=== PATIENT | female | born 1960 | race Caucasian/White ===

== ENCOUNTER 2020-07-26 23:46 | Inpatient (IN) | payer MEDICAID ==
[~2020-07-26] VITALS: Ht 161.3 cm; Wt 87.9 kg
[~2020-07-26 23:46] MED LIST: VANCOMYCIN 1,600 MG in SODIUM CHLORIDE 0.9% 250 ML IV ONE
[2020-07-27] MEDS ORDERED: VANCOMYCIN PER PHARMACY MC ONE
[2020-07-27] MEDS ORDERED: PIPERACILLIN/TAZO/PMX 3.375GM 50 ML IVPB ONE
[2020-07-27] MEDS ORDERED: SODIUM CHLORIDE 0.9% 1,000ML IVBOLUS ONE
--- NOTE | 2020-07-27 | NUR ---
BROUGHT IN BY ELIAS FROM [place], PER PATIENT WAS BIT BY SOMETHING LAST WEEK. PATIENT FELL DUE TO WEAKNESS BUT WAS LAYED DOWN BY . DIDNT HIT HEAD. RIGHT HAND SWELLING AND RIGHT AND LEFT MIDDLE FINGER NECROSIS NOTED. HYPOTENSIVE UPON ARRIVAL TO ED.
--- NOTE | 2020-07-27 00:15 | NUR ---
BLOOD CULTURE DRAWN.
--- NOTE | 2020-07-27 00:15 | NUR ---
PATIENT ALERT AND ORIENTED, LETHARGIC. AFEBRILE.
[2020-07-27] MEDS ORDERED: PIPERACILLIN/TAZO/PMX 3.375GM 50 ML ONE (00:16)
[2020-07-27 00:25] LABS: PH, VENOUS 7.311 pH (7.320-7.420)
[2020-07-27 00:29] LABS: MEAN CORPUSCULAR HEMOGLOBIN 29.7 pg (27.0-34.8); MEAN CORPUSCULAR HGB CONC 33.2 g/dL (32.4-35.8); MEAN CORPUSCULAR VOLUME 89.4 fL (80-100); MEAN PLATELET VOLUME 9.2 fL (7.4-10.4); PLATELET COUNT 189 x10^3/uL (130-400); RED BLOOD COUNT 3.33 x10^6/uL (3.82-5.3); RED CELL DISTRIBUTION WIDTH 15.7 % (9.6-15.2)
[2020-07-27] MEDS ORDERED: NOREPINEPHRINE 8 MG in SODIUM CHLORIDE 0.9% 242 ML IV PRN ×2 (00:30→02:30)
--- NOTE | 2020-07-27 00:36 | NUR ---
ANTIBIOTIC STARTED. VITAL SIGNS IMPROVING
[2020-07-27 00:39] LABS: ALANINE AMINOTRANSFERASE 24 U/L (12-78); ALBUMIN 1.7 g/dL (3.4-5.0); ANION GAP 11 mmol/L (5-15); CALCIUM 7.6 mg/dL (8.5-10.1); CHLORIDE 105 mmol/L (98-107); CREATININE 4.73 mg/dL (0.55-1.02); INTERNATIONAL NORMALIZED RATIO 1.23 (0.93-1.1); PROTHROMBIN TIME 12.7 Seconds (9.6-11.5)
[2020-07-27 00:45] LABS: MD YES
[2020-07-27 00:46] LABS: ALKALINE PHOSPHATASE 91 U/L (45-117); BILIRUBIN,TOTAL 1.1 mg/dL (0.2-1.0); TOTAL PROTEIN 5.1 g/dL (6.4-8.2)
[2020-07-27 00:47] LABS: BAND#(MANUAL) 3.27 x10^3/uL; BANDS%(MANUAL) 11 % (0-7); LYMPH#(MANUAL) 0.59 x10^3/uL (1-3.4); LYMPHS% (MANUAL) 2 % (22-44); MONOS#(MANUAL) 0.59 x10^3/uL (0.3-2.7); MONOS% (MANUAL) 2 % (2-9); SEG#(MANUAL) 25.25 x10^3/uL (1.8-6.8); SEGS% (MANUAL) 85 % (42-75)
[2020-07-27 00:48] LABS: <RBC MORPHOLOGY> NORMAL; PMNS WITH VACUOLES 1+
[2020-07-27 00:51] LABS: <PLATELET ESTIMATE> ADEQUATE; <PLT MORPHOLOGY> NORMAL PLT MORPH; C-REACTIVE PROTEIN, QUANT > 19.00 mg/dL (0.02-0.49); TOXIC GRAN 1+
[2020-07-27] MEDS ORDERED: FENTANYL PF 100 MCG/2ML ONE ×2 (01:28→10:28)
--- NOTE | 2020-07-27 01:34 | NUR ---
GENEVA RN: MD TO BS FOR CL PLACEMENT AND MEDICATED FOR PAIN PER FLACC, TITRATING LEVO
--- NOTE | 2020-07-27 01:53 | NUR ---
LINE PLACEMENT DONE. PT TOLERATED WELL.
[2020-07-27] MEDS ORDERED: FENTANYL PF 100 MCG/2ML IVPush ONE (02:00)
--- NOTE | 2020-07-27 02:01 | NUR ---
VERBAL ORDER TO GIVE 500NS BOLUS.
--- NOTE | 2020-07-27 02:08 | NUR ---
CXR DONE, DR CIFUENTES SAID OK TO USE THE CL FOR IVF. REPORT BS TO E[facility], PRIMARY RN
--- NOTE | 2020-07-27 02:15 | NUR ---
DR. MAHAJAN AT BEDSIDE. PATIENT GOING TO OR.
[2020-07-27] MEDS ORDERED: FENTANYL PF 250 MCG/5ML ONE (02:26)
[2020-07-27] MEDS ORDERED: VANCOMYCIN PER PHARMACY MC PRN (02:30)
[2020-07-27] MEDS ORDERED: morphine SULFATE 10 MG/ML, 1ML IVPush PRN (02:30)
[2020-07-27] MEDS ORDERED: PHARMACY MAY ADJ FOR RENAL FX MC PRN (02:30)
[2020-07-27] MEDS ORDERED: SODIUM CHLORIDE 0.9% 500 ML IV SCH (02:30)
[2020-07-27] MEDS ORDERED: PIPERACILLIN/TAZO/PMX 3.375GM 50 ML IV SCH (02:30)
[2020-07-27] MEDS ORDERED: ONDANSETRON 2MG/ML, 2ML IVPush PRN (02:30)
--- NOTE | 2020-07-27 02:30 | NUR ---
REPORT GIVEN TO KAREN TALLEY.
--- NOTE | 2020-07-27 02:35 | NUR ---
PATIENT TO SURGERY.
[2020-07-27] MEDS ORDERED: ROCURONIUM 10 MG/ML,10ML ONE (02:37)
[2020-07-27] MEDS ORDERED: NOREPINEPHRINE 1 MG/ML, 4ML ONE (02:57)
[2020-07-27] MEDS ORDERED: SUCCINYLCHOLINE 20 MG/ML, 10ML ONE (03:10)
[2020-07-27] MEDS ORDERED: PROPOFOL 10 MG/ML, 20ML ONE (03:10)
[2020-07-27] MEDS ORDERED: SODIUM BICARBONATE 1 MEQ/ML, 50ML VIAL ONE ×2 (03:26→03:41)
[2020-07-27 03:55] LABS: D-DIMER 4.27 ug/mlFEU (0.00-0.52)
[2020-07-27] MEDS ORDERED: PIPERACILLIN/TAZO/PMX 2.25GM 50 ML IV SCH (04:09)
[2020-07-27] MEDS ORDERED: PHARMACOKINETIC MONITORING MC PRN (04:30)
[2020-07-27] MEDS ORDERED: PHARMACOKINETIC CONSULTATION MC ONE (04:30)
[2020-07-27] MEDS: CLINDAMYCIN PMX 900MG/50ML 50 ML IV SCH ×3 (05:04→21:33)
[2020-07-27] MEDS: LACTATED RINGERS 1,000 ML IV SCH ×2 (05:08→15:57)
[2020-07-27 05:54] LABS: MICROSCOPIC INDICATED
[2020-07-27 05:58] LABS: MEAN CORPUSCULAR HEMOGLOBIN 29.4 pg (27.0-34.8); MEAN CORPUSCULAR HGB CONC 32.8 g/dL (32.4-35.8); MEAN CORPUSCULAR VOLUME 89.8 fL (80-100); PLATELET COUNT 196 x10^3/uL (130-400); RED BLOOD COUNT 3.77 x10^6/uL (3.82-5.3); RED CELL DISTRIBUTION WIDTH 15.9 % (9.6-15.2)
[2020-07-27 05:59] LABS: ANION GAP 10 mmol/L (5-15); CALCIUM 7.4 mg/dL (8.5-10.1); CHLORIDE 108 mmol/L (98-107); CREATININE 4.08 mg/dL (0.55-1.02)
[2020-07-27 06:06] LABS: AMPHETAMINE SCREEN, URINE Positive (Negative); BARBITURATE SCREEN, URINE Negative (Negative); BENZODIAZEPINE SCREEN, URINE Negative (Negative); CANNABINOID SCREEN, URINE Negative (Negative); COCAINE SCREEN, URINE Negative (Negative); METHADONE SCREEN, URINE Negative (Negative); OPIATE SCREEN, URINE Negative (Negative)
[2020-07-27 06:25] LABS: MD YES
[2020-07-27 06:29] LABS: BAND#(MANUAL) 9.69 x10^3/uL; BANDS%(MANUAL) 28 % (0-7); METAMYELOCYTES# (MANUAL) 3.11 x10^3/uL (0-0); METAMYELOCYTES% (MANUAL) 9 % (0-1); MONOS#(MANUAL) 0.69 x10^3/uL (0.3-2.7); MONOS% (MANUAL) 2 % (2-9); MYELOCYTES# (MANUAL) 0.35 x10^3/uL (0-0); MYELOCYTES% (MANUAL) 1 % (0-0); SEG#(MANUAL) 20.76 x10^3/uL (1.8-6.8); SEGS% (MANUAL) 60 % (42-75)
[2020-07-27 06:31] LABS: <PLATELET ESTIMATE> ADEQUATE; <PLT MORPHOLOGY> NORMAL PLT MORPH; PMNS WITH VACUOLES 1+
[2020-07-27 06:32] LABS: TOXIC GRAN 1+
[2020-07-27 06:34] LABS: ANISOCYTOSIS 1+
[2020-07-27] MEDS ORDERED: VASOPRESSIN 20 UNIT in SODIUM CHLORIDE 0.9% 99 ML IV PRN (07:00)
[2020-07-27] MEDS ORDERED: CEFTAROLINE 300 MG in SODIUM CHLORIDE 0.9% 100 ML IV SCH (07:00)
[2020-07-27] MEDS: NOREPINEPHRINE 32 MG in SODIUM CHLORIDE 0.9% 218 ML IV PRN ×2 (08:51→15:57)
[2020-07-27] MEDS: MEROPENEM 500 MG in SODIUM CHLORIDE 0.9% 100 ML IV SCH ×2 (08:51→21:33)
[2020-07-27] MEDS ORDERED: LIDOCAINE-MPF 1%, 2ML ENDO PRN (09:30)
[2020-07-27] MEDS: FAMOTIDINE 20 MG/2 ML IVPush SCH ×2 (09:42→21:33)
[2020-07-27] MEDS: HEPARIN 5,000 UNITS/ML, 1ML SQ SCH ×2 (09:47→18:59)
[2020-07-27] MEDS: MIDAZOLAM HCL 50 MG in SODIUM CHLORIDE 0.9% 40 ML IV PRN ×2 (10:23→23:22)
[2020-07-27] MEDS: FENTANYL PF 100 MCG/2ML IVPush PRN (10:33)
[2020-07-27] MEDS: AMIODARONE 450 MG in DEXTROSE 5% 241 ML IV PRN ×2 (12:56→21:12)
[2020-07-27] MEDS: FILTER 0.22 MICRON FOR AMIODARONE IV PRN ×2 (12:59→21:13)
[2020-07-27] MEDS ORDERED: DAPTOMYCIN 520 MG in SODIUM CHLORIDE 0.9% 100 ML IVPB SCH (13:00)
[2020-07-27] MEDS ORDERED: AMIODARONE 150 MG in DEXTROSE 5% 100 ML IV ONE (13:00)
[2020-07-27] MEDS: ACETAMINOPHEN 650 MG/20.3 ML UDC PO PRN ×2 (13:09→18:59)
[2020-07-27 13:50] LABS: CHLORIDE,URINE RANDOM 21 mmol/L; POTASSIUM,URINE RANDOM 54 mmol/L; SODIUM,URINE RANDOM 43 mmol/L
[2020-07-27] MEDS ORDERED: MAGNESIUM SULFATE PMX 4GM/100M 100 ML IV ONE (15:00)
[2020-07-27] MEDS ORDERED: PHENYLEPHRINE 50 MG in SODIUM CHLORIDE 0.9% 245 ML IV PRN (20:00)
[2020-07-28] MEDS: NOREPINEPHRINE 32 MG in SODIUM CHLORIDE 0.9% 218 ML IV PRN ×2 (00:56→11:49)
[2020-07-28] MEDS: HEPARIN 5,000 UNITS/ML, 1ML SQ SCH ×3 (02:22→17:37)
[2020-07-28] MEDS: LACTATED RINGERS 1,000 ML IV SCH ×2 (02:22→11:55)
[2020-07-28 04:00] VITALS: BP 107/54
[2020-07-28] MEDS: CLINDAMYCIN PMX 900MG/50ML 50 ML IV SCH ×3 (04:54→23:28)
[2020-07-28 05:16] LABS: MEAN CORPUSCULAR HEMOGLOBIN 29.5 pg (27.0-34.8); MEAN CORPUSCULAR HGB CONC 33.9 g/dL (32.4-35.8); MEAN CORPUSCULAR VOLUME 87.2 fL (80-100); PLATELET COUNT 142 x10^3/uL (130-400); RED BLOOD COUNT 3.76 x10^6/uL (3.82-5.3); RED CELL DISTRIBUTION WIDTH 15.4 % (9.6-15.2)
[2020-07-28 05:23] LABS: ALBUMIN 1.3 g/dL (3.4-5.0); ANION GAP 10 mmol/L (5-15); CHLORIDE 107 mmol/L (98-107)
[2020-07-28 05:25] LABS: ALKALINE PHOSPHATASE 112 U/L (45-117); BILIRUBIN,TOTAL 1.4 mg/dL (0.2-1.0); TOTAL PROTEIN 4.6 g/dL (6.4-8.2)
[2020-07-28 05:27] LABS: ALANINE AMINOTRANSFERASE 42 U/L (12-78); CALCIUM 7.8 mg/dL (8.5-10.1); CREATININE 2.94 mg/dL (0.55-1.02)
[2020-07-28 06:03] LABS: MD YES
[2020-07-28 06:06] LABS: BAND#(MANUAL) 9.76 x10^3/uL; BANDS%(MANUAL) 36 % (0-7); LYMPH#(MANUAL) 0.81 x10^3/uL (1-3.4); LYMPHS% (MANUAL) 3 % (22-44); METAMYELOCYTES# (MANUAL) 1.36 x10^3/uL (0-0); METAMYELOCYTES% (MANUAL) 5 % (0-1); MONOS#(MANUAL) 1.63 x10^3/uL (0.3-2.7); MONOS% (MANUAL) 6 % (2-9); MYELOCYTES# (MANUAL) 0.27 x10^3/uL (0-0); MYELOCYTES% (MANUAL) 1 % (0-0); SEG#(MANUAL) 13.28 x10^3/uL (1.8-6.8); SEGS% (MANUAL) 49 % (42-75)
[2020-07-28 06:07] LABS: <PLATELET ESTIMATE> ADEQUATE; <PLT MORPHOLOGY> NORMAL PLT MORPH; ANISOCYTOSIS 1+; TOXIC GRAN 1+
[2020-07-28 06:08] LABS: PMNS WITH VACUOLES 1+
[2020-07-28] MEDS: MEROPENEM 500 MG in SODIUM CHLORIDE 0.9% 100 ML IV SCH ×2 (08:32→23:28)
[2020-07-28] MEDS: AMIODARONE 450 MG in DEXTROSE 5% 241 ML IV PRN (12:00)
[2020-07-28] MEDS: ACETAMINOPHEN 650 MG/20.3 ML UDC PO PRN (16:22)
[2020-07-28] MEDS: MIDAZOLAM HCL 50 MG in SODIUM CHLORIDE 0.9% 40 ML IV PRN (21:13)
[2020-07-28] MEDS: FAMOTIDINE 20 MG/2 ML IVPush SCH (23:27)
[2020-07-28] MEDS: FENTANYL PF 100 MCG/2ML IVPush PRN (23:28)
[2020-07-29] MEDS: NOREPINEPHRINE 32 MG in SODIUM CHLORIDE 0.9% 218 ML IV PRN (01:31)
[2020-07-29] MEDS: FENTANYL PF 100 MCG/2ML IVPush PRN ×8 (01:32→23:02)
[2020-07-29] MEDS: HEPARIN 5,000 UNITS/ML, 1ML SQ SCH ×3 (01:36→18:13)
[2020-07-29] MEDS: AMIODARONE 450 MG in DEXTROSE 5% 241 ML IV PRN ×2 (01:51→19:49)
[2020-07-29] MEDS: LACTATED RINGERS 1,000 ML IV SCH (02:21)
[2020-07-29 04:00] VITALS: BP 118/70
[2020-07-29] MEDS: CLINDAMYCIN PMX 900MG/50ML 50 ML IV SCH ×3 (05:00→21:15)
[2020-07-29 05:07] LABS: ALANINE AMINOTRANSFERASE 36 U/L (12-78); ALBUMIN 1.2 g/dL (3.4-5.0); ANION GAP 6 mmol/L (5-15); CALCIUM 7.6 mg/dL (8.5-10.1); CHLORIDE 107 mmol/L (98-107); CREATININE 1.99 mg/dL (0.55-1.02)
[2020-07-29 05:09] LABS: ALKALINE PHOSPHATASE 119 U/L (45-117); BILIRUBIN,TOTAL 1.3 mg/dL (0.2-1.0); TOTAL PROTEIN 4.6 g/dL (6.4-8.2)
[2020-07-29 06:01] LABS: MD YES; MEAN CORPUSCULAR HEMOGLOBIN 29.3 pg (27.0-34.8); MEAN CORPUSCULAR HGB CONC 33.6 g/dL (32.4-35.8); MEAN PLATELET VOLUME 9.1 fL (7.4-10.4); PLATELET COUNT 79 x10^3/uL (130-400); RED BLOOD COUNT 3.63 x10^6/uL (3.82-5.3); RED CELL DISTRIBUTION WIDTH 15.3 % (9.6-15.2)
[2020-07-29 06:03] LABS: BAND#(MANUAL) 5.08 x10^3/uL; BANDS%(MANUAL) 20 % (0-7); EOS#(MANUAL) 0.25 x10^3/uL (0.0-0.4); EOS% (MANUAL) 1 % (1-7); MONOS#(MANUAL) 0.51 x10^3/uL (0.3-2.7); MONOS% (MANUAL) 2 % (2-9); SEG#(MANUAL) 17.78 x10^3/uL (1.8-6.8); SEGS% (MANUAL) 70 % (42-75)
[2020-07-29 06:04] LABS: ANISOCYTOSIS 1+; LYMPH#(MANUAL) 1.52 x10^3/uL (1-3.4); LYMPHS% (MANUAL) 6 % (22-44); METAMYELOCYTES# (MANUAL) 0.25 x10^3/uL (0-0); METAMYELOCYTES% (MANUAL) 1 % (0-1); PMNS WITH VACUOLES 1+; TOXIC GRAN 1+
[2020-07-29 06:06] LABS: <PLATELET ESTIMATE> DECREASED; <PLT MORPHOLOGY> NORMAL PLT MORPH
[2020-07-29] MEDS: MEROPENEM 500 MG in SODIUM CHLORIDE 0.9% 100 ML IV SCH (09:57)
[2020-07-29] MEDS ORDERED: VANCOMYCIN PMX 1GM/200ML 200 ML IV ONE (17:30)
[2020-07-29] MEDS ORDERED: PHARMACOKINETIC MONITORING MC PRN (17:30)
[2020-07-29] MEDS ORDERED: VANCOMYCIN PER PHARMACY MC PRN (17:30)
[2020-07-29] MEDS ORDERED: PHARMACOKINETIC CONSULTATION MC ONE (17:30)
[2020-07-29] MEDS: FAMOTIDINE 20 MG/2 ML IVPush SCH (21:15)
[2020-07-29] MEDS ORDERED: MEROPENEM 1 GM in SODIUM CHLORIDE 0.9% 100 ML IV SCH (22:00)
[2020-07-30] MEDS: HEPARIN 5,000 UNITS/ML, 1ML SQ SCH ×3 (02:16→20:42)
[2020-07-30] MEDS: FENTANYL PF 100 MCG/2ML IVPush PRN ×6 (02:17→23:30)
[2020-07-30] MEDS: MIDAZOLAM HCL 50 MG in SODIUM CHLORIDE 0.9% 40 ML IV PRN ×2 (02:19→16:23)
[2020-07-30 04:00] VITALS: BP 99/53
[2020-07-30 05:27] LABS: MEAN CORPUSCULAR HEMOGLOBIN 28.7 pg (27.0-34.8); MEAN CORPUSCULAR HGB CONC 32.6 g/dL (32.4-35.8); PLATELET COUNT 62 x10^3/uL (130-400); RED BLOOD COUNT 3.33 x10^6/uL (3.82-5.3); RED CELL DISTRIBUTION WIDTH 16.2 % (9.6-15.2)
[2020-07-30] MEDS: CLINDAMYCIN PMX 900MG/50ML 50 ML IV SCH ×3 (05:29→20:43)
[2020-07-30 05:48] LABS: MD YES
[2020-07-30 05:49] LABS: ANISOCYTOSIS 1+; BAND#(MANUAL) 1.05 x10^3/uL; BANDS%(MANUAL) 6 % (0-7); LYMPH#(MANUAL) 0.88 x10^3/uL (1-3.4); LYMPHS% (MANUAL) 5 % (22-44); METAMYELOCYTES# (MANUAL) 0.18 x10^3/uL (0-0); METAMYELOCYTES% (MANUAL) 1 % (0-1); MONOS% (MANUAL) 4 % (2-9); SEGS% (MANUAL) 84 % (42-75)
[2020-07-30 05:50] LABS: TOXIC GRAN 1+
[2020-07-30 05:51] LABS: <PLATELET ESTIMATE> DECREASED; <PLT MORPHOLOGY> NORMAL PLT MORPH
[2020-07-30] MEDS: NOREPINEPHRINE 32 MG in SODIUM CHLORIDE 0.9% 218 ML IV PRN (08:41)
[2020-07-30] MEDS: AMIODARONE 450 MG in DEXTROSE 5% 241 ML IV PRN ×2 (08:42→23:32)
[2020-07-30 09:25] LABS: ALBUMIN 1.1 g/dL (3.4-5.0); ANION GAP 7 mmol/L (5-15); CALCIUM 7.7 mg/dL (8.5-10.1); CHLORIDE 107 mmol/L (98-107); CREATININE 1.59 mg/dL (0.55-1.02)
[2020-07-30] MEDS ORDERED: VANCOMYCIN 1,700 MG in SODIUM CHLORIDE 0.9% 250 ML IV SCH (10:00)
[2020-07-30] MEDS: ALBUMIN HUMAN 25% 100 ML IV PRN ×3 (10:13→12:10)
[2020-07-30] MEDS ORDERED: ALBUMIN HUMAN 25% 100 ML IV PRN (10:30)
[2020-07-30] MEDS: IRON SUCROSE COMPLEX 100MG/5ML IV ONE ×2 (12:00→12:54)
[2020-07-30] MEDS: MEROPENEM 1 GM in SODIUM CHLORIDE 0.9% 100 ML IV SCH (16:00)
[2020-07-30] MEDS: ACETAMINOPHEN 650 MG/20.3 ML UDC PO PRN (16:02)
[2020-07-30] MEDS: FAMOTIDINE 20 MG/2 ML IVPush SCH (20:42)
[2020-07-31] MEDS: MIDAZOLAM HCL 50 MG in SODIUM CHLORIDE 0.9% 40 ML IV PRN ×2 (02:58→20:49)
[2020-07-31] MEDS: FENTANYL PF 1,000 MCG in SODIUM CHLORIDE 0.9% 80 ML IV PRN ×2 (02:58→12:21)
[2020-07-31 04:00] VITALS: BP 91/51
[2020-07-31] MEDS: HEPARIN 5,000 UNITS/ML, 1ML SQ SCH ×3 (04:49→20:39)
[2020-07-31] MEDS: CLINDAMYCIN PMX 900MG/50ML 50 ML IV SCH ×3 (04:49→22:06)
[2020-07-31 06:01] LABS: MEAN CORPUSCULAR HEMOGLOBIN 28.8 pg (27.0-34.8); MEAN CORPUSCULAR HGB CONC 33.1 g/dL (32.4-35.8); MEAN CORPUSCULAR VOLUME 87.1 fL (80-100); RED CELL DISTRIBUTION WIDTH 15.7 % (9.6-15.2)
[2020-07-31 06:17] LABS: ANION GAP 6 mmol/L (5-15); CALCIUM 7.5 mg/dL (8.5-10.1); CHLORIDE 105 mmol/L (98-107)
[2020-07-31 06:29] LABS: MEAN PLATELET VOLUME 9.1 fL (7.4-10.4); PLATELET COUNT 66 x10^3/uL (130-400)
[2020-07-31 06:30] LABS: MD YES
[2020-07-31 06:32] LABS: BAND#(MANUAL) 0.94 x10^3/uL; BANDS%(MANUAL) 8 % (0-7); LYMPH#(MANUAL) 0.59 x10^3/uL (1-3.4); LYMPHS% (MANUAL) 5 % (22-44); MONOS#(MANUAL) 0.35 x10^3/uL (0.3-2.7); MONOS% (MANUAL) 3 % (2-9)
[2020-07-31 06:33] LABS: SEG#(MANUAL) 9.91 x10^3/uL (1.8-6.8); SEGS% (MANUAL) 84 % (42-75)
[2020-07-31 06:34] LABS: <PLATELET ESTIMATE> DECREASED; <PLT MORPHOLOGY> NORMAL PLT MORPH; ANISOCYTOSIS 1+
[2020-07-31 06:35] LABS: PMNS WITH VACUOLES 1+; TOXIC GRAN 2+
[2020-07-31] MEDS ORDERED: MAGNESIUM SULFATE PMX 2GM/50ML 50 ML IV ONE (10:30)
[2020-07-31] MEDS: AMIODARONE 450 MG in DEXTROSE 5% 241 ML IV PRN (12:25)
[2020-07-31] MEDS: NOREPINEPHRINE 32 MG in SODIUM CHLORIDE 0.9% 218 ML IV PRN (12:26)
[2020-07-31] MEDS: POTASSIUM CHLORIDE 10% 40 MEQ/30 ML UDC NG SCH ×2 (14:32→20:39)
[2020-07-31] MEDS: MEROPENEM 1 GM in SODIUM CHLORIDE 0.9% 100 ML IV SCH (20:39)
[2020-07-31] MEDS: FAMOTIDINE 20 MG/2 ML IVPush SCH (20:40)
[2020-08-01] MEDS: FENTANYL PF 1,000 MCG in SODIUM CHLORIDE 0.9% 80 ML IV PRN ×3 (01:24→17:55)
[2020-08-01 04:00] VITALS: BP 97/55
[2020-08-01] MEDS: HEPARIN 5,000 UNITS/ML, 1ML SQ SCH ×3 (04:34→19:59)
[2020-08-01 05:05] LABS: ALANINE AMINOTRANSFERASE 94 U/L (12-78); ALBUMIN 1.5 g/dL (3.4-5.0); ANION GAP 6 mmol/L (5-15); CALCIUM 8.1 mg/dL (8.5-10.1); CHLORIDE 102 mmol/L (98-107); CREATININE 1.85 mg/dL (0.55-1.02)
[2020-08-01 05:08] LABS: ALKALINE PHOSPHATASE 302 U/L (45-117); TOTAL PROTEIN 5.2 g/dL (6.4-8.2)
[2020-08-01 05:26] LABS: MEAN CORPUSCULAR HEMOGLOBIN 28.9 pg (27.0-34.8); MEAN CORPUSCULAR HGB CONC 33.1 g/dL (32.4-35.8); MEAN CORPUSCULAR VOLUME 87.4 fL (80-100); PLATELET COUNT 108 x10^3/uL (130-400); RED BLOOD COUNT 3.19 x10^6/uL (3.82-5.3); RED CELL DISTRIBUTION WIDTH 15.9 % (9.6-15.2)
[2020-08-01] MEDS: CLINDAMYCIN PMX 900MG/50ML 50 ML IV SCH (05:47)
[2020-08-01 06:10] LABS: MD YES
[2020-08-01 06:12] LABS: ANISOCYTOSIS 1+; BAND#(MANUAL) 0.15 x10^3/uL; BANDS%(MANUAL) 1 % (0-7); EOS% (MANUAL) 2 % (1-7); LYMPH#(MANUAL) 0.59 x10^3/uL (1-3.4); LYMPHS% (MANUAL) 4 % (22-44); METAMYELOCYTES# (MANUAL) 0.15 x10^3/uL (0-0); METAMYELOCYTES% (MANUAL) 1 % (0-1); MONOS#(MANUAL) 0.59 x10^3/uL (0.3-2.7); MONOS% (MANUAL) 4 % (2-9); SEG#(MANUAL) 13.02 x10^3/uL (1.8-6.8); SEGS% (MANUAL) 88 % (42-75)
[2020-08-01 06:14] LABS: <PLATELET ESTIMATE> DECREASED; <PLT MORPHOLOGY> NORMAL PLT MORPH; TOXIC GRAN 1+
[2020-08-01] MEDS: AMIODARONE 450 MG in DEXTROSE 5% 241 ML IV PRN (09:51)
[2020-08-01] MEDS: FILTER 0.22 MICRON FOR AMIODARONE IV PRN (09:51)
[2020-08-01] MEDS: MIDAZOLAM HCL 50 MG in SODIUM CHLORIDE 0.9% 40 ML IV PRN (10:21)
[2020-08-01] MEDS: CEFTAROLINE 600 MG in SODIUM CHLORIDE 0.9% 100 ML IV SCH (11:17)
[2020-08-01] MEDS: ALBUMIN HUMAN 25% 100 ML IV PRN ×3 (19:42→22:47)
[2020-08-01] MEDS: FAMOTIDINE 20 MG/2 ML IVPush SCH (19:59)
[2020-08-02] MEDS: CEFTAROLINE 600 MG in SODIUM CHLORIDE 0.9% 100 ML IV SCH ×3 (00:09→16:55)
[2020-08-02] MEDS: AMIODARONE 450 MG in DEXTROSE 5% 241 ML IV PRN ×2 (00:10→02:45)
[2020-08-02] MEDS: FILTER 0.22 MICRON FOR AMIODARONE IV PRN (02:44)
[2020-08-02 04:00] VITALS: BP 152/65
[2020-08-02] MEDS: HEPARIN 5,000 UNITS/ML, 1ML SQ SCH ×3 (04:40→20:02)
[2020-08-02] MEDS: FENTANYL PF 1,000 MCG in SODIUM CHLORIDE 0.9% 80 ML IV PRN ×3 (04:47→17:50)
[2020-08-02] MEDS: MIDAZOLAM HCL 50 MG in SODIUM CHLORIDE 0.9% 40 ML IV PRN ×2 (04:59→10:49)
[2020-08-02 05:22] LABS: MEAN CORPUSCULAR HGB CONC 33.4 g/dL (32.4-35.8); MEAN CORPUSCULAR VOLUME 86.8 fL (80-100); MEAN PLATELET VOLUME 8.6 fL (7.4-10.4); PLATELET COUNT 138 x10^3/uL (130-400); RED BLOOD COUNT 3.02 x10^6/uL (3.82-5.3); RED CELL DISTRIBUTION WIDTH 15.8 % (9.6-15.2)
[2020-08-02 05:23] LABS: ALANINE AMINOTRANSFERASE 96 U/L (12-78); ALBUMIN 2.6 g/dL (3.4-5.0); ANION GAP 4 mmol/L (5-15); CALCIUM 8.3 mg/dL (8.5-10.1); CHLORIDE 106 mmol/L (98-107); CREATININE 1.05 mg/dL (0.55-1.02)
[2020-08-02 05:25] LABS: ALKALINE PHOSPHATASE 277 U/L (45-117); BILIRUBIN,TOTAL 2.3 mg/dL (0.2-1.0); TOTAL PROTEIN 5.8 g/dL (6.4-8.2)
[2020-08-02 06:02] LABS: BASOPHILS # (AUTO) 0.01 x10^3/uL (0-0.1); BASOPHILS % (AUTO) 0 % (0-1); EOSINOPHILS # (AUTO) 0.12 x10^3/uL (0-0.4); EOSINOPHILS % (AUTO) 1 % (1-7); LYMPHOCYTES # (AUTO) 1.02 x10^3/uL (1-3.4); LYMPHOCYTES % (AUTO) 8 % (22-44); MD SCAN; MONOCYTES # (AUTO) 0.94 x10^3/uL (0.2-0.8); MONOCYTES % (AUTO) 7 % (2-9); NEUTROPHILS # (AUTO) 10.67 x10^3/uL (1.8-6.8); NEUTROPHILS % (AUTO) 84 % (42-75)
[2020-08-02] MEDS ORDERED: DOCUSATE 100 MG CAPSULE PO PRN (15:00)
[2020-08-02] MEDS ORDERED: BISACODYL 10 MG SUPP PR PRN (15:00)
[2020-08-02] MEDS ORDERED: LACTULOSE 10 GM/15 ML UDC PO PRN (15:00)
[2020-08-02] MEDS ORDERED: CEFTAROLINE 600 MG in SODIUM CHLORIDE 0.9% 100 ML IV SCH (15:30)
[2020-08-02] MEDS: ACETAMINOPHEN 650 MG/20.3 ML UDC PO PRN (16:30)
[2020-08-02] MEDS: FAMOTIDINE 20 MG/2 ML IVPush SCH (20:02)
[2020-08-02] MEDS: AMIODARONE 200 MG TABLET PO SCH (20:02)
[2020-08-03] MEDS: CEFTAROLINE 600 MG in SODIUM CHLORIDE 0.9% 100 ML IV SCH ×3 (01:41→17:42)
[2020-08-03] MEDS: MIDAZOLAM HCL 50 MG in SODIUM CHLORIDE 0.9% 40 ML IV PRN ×2 (03:18→14:20)
[2020-08-03] MEDS: HEPARIN 5,000 UNITS/ML, 1ML SQ SCH ×3 (03:19→20:07)
[2020-08-03] MEDS: FENTANYL PF 1,000 MCG in SODIUM CHLORIDE 0.9% 80 ML IV PRN ×3 (03:19→20:06)
[2020-08-03 04:00] VITALS: BP 79/49
[2020-08-03 04:24] LABS: MEAN CORPUSCULAR HEMOGLOBIN 28.2 pg (27.0-34.8); MEAN CORPUSCULAR HGB CONC 32.1 g/dL (32.4-35.8); MEAN PLATELET VOLUME 8.5 fL (7.4-10.4); PLATELET COUNT 199 x10^3/uL (130-400); RED BLOOD COUNT 2.84 x10^6/uL (3.82-5.3); RED CELL DISTRIBUTION WIDTH 15.6 % (9.6-15.2)
[2020-08-03 04:33] LABS: ALBUMIN 1.9 g/dL (3.4-5.0); ANION GAP 4 mmol/L (5-15); CALCIUM 8.3 mg/dL (8.5-10.1); CHLORIDE 106 mmol/L (98-107)
[2020-08-03 04:34] LABS: CREATININE 1.34 mg/dL (0.55-1.02)
[2020-08-03 04:54] LABS: MD YES
[2020-08-03 04:56] LABS: BAND#(MANUAL) 0.12 x10^3/uL; BANDS%(MANUAL) 1 % (0-7); EOS#(MANUAL) 0.25 x10^3/uL (0.0-0.4); EOS% (MANUAL) 2 % (1-7); LYMPH#(MANUAL) 0.74 x10^3/uL (1-3.4); LYMPHS% (MANUAL) 6 % (22-44); METAMYELOCYTES# (MANUAL) 0.25 x10^3/uL (0-0); METAMYELOCYTES% (MANUAL) 2 % (0-1); MONOS#(MANUAL) 0.62 x10^3/uL (0.3-2.7); MONOS% (MANUAL) 5 % (2-9); SEG#(MANUAL) 10.42 x10^3/uL (1.8-6.8); SEGS% (MANUAL) 84 % (42-75)
[2020-08-03 04:57] LABS: <PLATELET ESTIMATE> ADEQUATE; <PLT MORPHOLOGY> NORMAL PLT MORPH; ANISOCYTOSIS 1+
[2020-08-03] MEDS: AMIODARONE 200 MG TABLET PO SCH ×2 (08:24→20:50)
[2020-08-03] MEDS ORDERED: METHYLNALTREXONE 12 MG/0.6 ML SYR SQ SCH (09:00)
[2020-08-03] MEDS ORDERED: SENNA 176 MG/5 ML ORAL SOL NG SCH (09:00)
[2020-08-03] MEDS: FAMOTIDINE 20 MG/2 ML IVPush SCH (20:50)
[2020-08-03] MEDS: NOREPINEPHRINE 32 MG in SODIUM CHLORIDE 0.9% 218 ML IV PRN (20:51)
[2020-08-04] MEDS: CEFTAROLINE 600 MG in SODIUM CHLORIDE 0.9% 100 ML IV SCH ×2 (01:38→09:09)
[2020-08-04] MEDS: FENTANYL PF 1,000 MCG in SODIUM CHLORIDE 0.9% 80 ML IV PRN ×2 (02:28→10:10)
[2020-08-04] MEDS: HEPARIN 5,000 UNITS/ML, 1ML SQ SCH ×2 (03:46→13:05)
[2020-08-04 04:00] VITALS: BP 122/62
[2020-08-04 04:40] LABS: MEAN CORPUSCULAR HEMOGLOBIN 29.1 pg (27.0-34.8); MEAN CORPUSCULAR HGB CONC 33.3 g/dL (32.4-35.8); MEAN CORPUSCULAR VOLUME 87.6 fL (80-100); MEAN PLATELET VOLUME 9.1 fL (7.4-10.4); PLATELET COUNT 290 x10^3/uL (130-400); RED BLOOD COUNT 2.66 x10^6/uL (3.82-5.3); RED CELL DISTRIBUTION WIDTH 15.4 % (9.6-15.2)
[2020-08-04 04:50] LABS: ANION GAP 5 mmol/L (5-15); CALCIUM 8.6 mg/dL (8.5-10.1); CHLORIDE 109 mmol/L (98-107); CREATININE 1.35 mg/dL (0.55-1.02)
[2020-08-04 05:04] LABS: BASOPHILS # (AUTO) 0.01 x10^3/uL (0-0.1); BASOPHILS % (AUTO) 0 % (0-1); EOSINOPHILS % (AUTO) 2 % (1-7); LYMPHOCYTES # (AUTO) 1.17 x10^3/uL (1-3.4); LYMPHOCYTES % (AUTO) 8 % (22-44); MD SCAN; MONOCYTES # (AUTO) 1.62 x10^3/uL (0.2-0.8); MONOCYTES % (AUTO) 11 % (2-9); NEUTROPHILS # (AUTO) 11.59 x10^3/uL (1.8-6.8); NEUTROPHILS % (AUTO) 79 % (42-75)
[2020-08-04] MEDS: AMIODARONE 200 MG TABLET PO SCH (09:09)
[2020-08-04] MEDS ORDERED: ATROPINE OPHTH SOLN 1%, 5ML PO PRN (14:00)
[2020-08-04] MEDS ORDERED: MORPHINE SULFATE 4 MG/ML, 1ML IV ONE (14:00)
[2020-08-04] MEDS ORDERED: SCOPOLAMINE 1MG PATCH TD PRN (14:00)
[2020-08-04] MEDS ORDERED: ONDANSETRON 2MG/ML, 2ML IVPush PRN (14:00)
[2020-08-04] MEDS ORDERED: LORazepam 2 MG/ML, 1ML IV ONE (14:00)
[2020-08-04] MEDS ORDERED: MORPHINE 30MG/30ML PCA.SYR IV PRN ×2 (14:00→16:00)
[2020-08-04] MEDS: LORazepam 2 MG/ML, 1ML IVPush PRN ×2 (17:07→17:16)
[2020-08-04] MEDS ORDERED: morphine SULFATE 100 MG in DEXTROSE 5% 90 ML IV PRN (18:00)
== END 2020-08-05 01:47 | disposition expired | DRG 710 ==
LOC: ED 07-27 00:16 → EDIP 07-27 02:02 → CCU 07-27 04:07 → 4NW 08-04 17:45
PROVIDERS: ADMIT Family Medicine; ATTEND Internal Medicine
PROC: 0BH17EZ Insertion of Endotracheal Airway into Trachea, Via Natural or Artificial Opening (ICD-10-PCS; 2020-07-27)
PROC: 02HV33Z Insertion of Infusion Device into Superior Vena Cava, Percutaneous Approach (ICD-10-PCS; 2020-07-27)
PROC: B548ZZA Ultrasonography of Superior Vena Cava, Guidance (ICD-10-PCS; 2020-07-27)
PROC: 0JBK0ZZ Excision of Left Hand Subcutaneous Tissue and Fascia, Open Approach (ICD-10-PCS; 2020-07-27)
PROC: 0JBJ0ZZ Excision of Right Hand Subcutaneous Tissue and Fascia, Open Approach (ICD-10-PCS; 2020-07-27)
PROC: 0J9K0ZZ Drainage of Left Hand Subcutaneous Tissue and Fascia, Open Approach (ICD-10-PCS; 2020-07-27)
PROC: 0J9J0ZZ Drainage of Right Hand Subcutaneous Tissue and Fascia, Open Approach (ICD-10-PCS; 2020-07-27)
PROC: 5A1955Z Respiratory Ventilation, Greater than 96 Consecutive Hours (ICD-10-PCS; 2020-07-27)
PROC: 0T9B30Z Drainage of Bladder with Drainage Device, Percutaneous Approach (ICD-10-PCS; principal; 2020-07-27 03:00)
DX: A41.9 Sepsis, unspecified organism (principal); A48.3 Toxic shock syndrome; B95.0 Streptococcus, group A, as the cause of diseases classified elsewhere; B95.4 Other streptococcus as the cause of diseases classified elsewhere; B96.20 Unspecified Escherichia coli [E. coli] as the cause of diseases classified elsewhere; D63.8 Anemia in other chronic diseases classified elsewhere; D69.6 Thrombocytopenia, unspecified; E43 Unspecified severe protein-calorie malnutrition; E83.51 Hypocalcemia; E87.2 Acidosis; G93.41 Metabolic encephalopathy; I48.91 Unspecified atrial fibrillation; I73.9 Peripheral vascular disease, unspecified; J18.9 Pneumonia, unspecified organism; J44.0 Chronic obstructive pulmonary disease with (acute) lower respiratory infection; J44.1 Chronic obstructive pulmonary disease with (acute) exacerbation; J96.01 Acute respiratory failure with hypoxia; L02.511 Cutaneous abscess of right hand; L03.115 Cellulitis of right lower limb; M19.90 Unspecified osteoarthritis, unspecified site; M60.9 Myositis, unspecified; M72.6 Necrotizing fasciitis; M87.9 Osteonecrosis, unspecified; N17.0 Acute kidney failure with tubular necrosis; N39.0 Urinary tract infection, site not specified; M25.461 Effusion, right knee; R65.21 Severe sepsis with septic shock; S61.201A Unspecified open wound of left index finger without damage to nail, initial encounter; Z51.5 Encounter for palliative care; M79.89 Other specified soft tissue disorders; Z66 Do not resuscitate; Z88.0 Allergy status to penicillin; Z99.11 Dependence on respirator [ventilator] status; Z99.2 Dependence on renal dialysis; Z79.899 Other long term (current) drug therapy
CPT/HCPCS: 36415; 36556; 36600; 71045; 74018; 76770; 76937; 77001; 80048; 80053; 80069; 80074; 80202; 80307; 81001; 82306; 82330; 82436; 82533; 82550; 82570; 82728; 82803; 82947; 83036; 83540; 83550; 83605; 83735; 83880; 83935; 84100; 84132; 84133; 84145; 84156; 84295; 84300; 84478; 84550; 85014; 85025; 85379; 85384; 85610; 85730; 86140; 86592; 86704; 86706; 86850; 86900; 87040; 87070; 87075; 87077; 87081; 87086; 87147; 87181; 87186; 87205; 87340; 87635; 87806; 90935; 93005; 93306; 93922; 93970; 94002; 94003; 96374; 99291; G0378; J0712; J0878; J1644; J1756; J2185; J2250; J2270; J2543; J2704; J3010; J3370; J7060; P9047; C1751; G0475; J0282; J0330; J1642; J2060; J3475; J3490; J7030; J7040; J7050; J7120